=== PATIENT | male | born 1985 | race American Indian/Alaskan Native ===

== ENCOUNTER 2017-04-19 18:35 | Emergency (ER) | payer OTHER ==
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
[2017-04-19 22:13] VITALS: BP 133/95
[2017-04-19] MEDS ORDERED: FIORICET PO ONE (22:13)
== END 2017-04-19 22:55 | disposition home or self-care (01) ==
LOC: ED 18:35
DX: G43.909 Migraine, unspecified, not intractable, without status migrainosus (principal); R03.0 Elevated blood-pressure reading, without diagnosis of hypertension; Z87.891 Personal history of nicotine dependence
CPT/HCPCS: 99282